=== PATIENT | female | born 1940 | race Caucasian/White ===

== ENCOUNTER 2017-04-02 20:46 | Emergency (ER) | payer OTHER ==
[~2017-04-02] VITALS: Ht 162.6 cm; Wt 52.2 kg
[~2017-04-02 20:46] MED LIST: CATAFLAM50 MG PO; LEVSIN/SL0.125 MG SL; LEXAPRO; TESSALON PERLE100 MG PO
[2017-04-02] MEDS ORDERED: XANAX1 MG (21:19)
== END 2017-04-02 23:58 | disposition home or self-care (01) ==
LOC: ER 20:46
DX: J11.1 Influenza due to unidentified influenza virus with other respiratory manifestations (principal); J06.9 Acute upper respiratory infection, unspecified

== ENCOUNTER 2017-04-25 20:40 | Emergency (ER) | payer OTHER ==
[~2017-04-25] VITALS: Ht 175.3 cm; Wt 47.6 kg
[~2017-04-25 20:40] MED LIST changes: +XANAX1 MG
== END 2017-04-25 23:30 | disposition home or self-care (01) ==
LOC: ER 20:40
DX: S61.421A Laceration with foreign body of right hand, initial encounter (principal); S81.012A Laceration without foreign body, left knee, initial encounter; S81.011A Laceration without foreign body, right knee, initial encounter; W54.0XXA Bitten by dog, initial encounter; Y93.89 Activity, other specified; Y92.018 Other place in single-family (private) house as the place of occurrence of the external cause; Y99.8 Other external cause status

== ENCOUNTER → 2017-04-27 | Emergency (ER) | payer OTHER ==
[~2017-04-27] VITALS: Ht 160 cm; Wt 49.9 kg
== END | disposition home or self-care (01) ==
LOC: ER 09:44
DX: S80.272A Other superficial bite of left knee, initial encounter (principal); S80.271A Other superficial bite of right knee, initial encounter; S50.872A Other superficial bite of left forearm, initial encounter; W54.0XXA Bitten by dog, initial encounter; Y93.89 Activity, other specified; Y92.89 Other specified places as the place of occurrence of the external cause; Y99.8 Other external cause status

== ENCOUNTER 2018-02-18 14:15 | Outpatient (CLI) | payer OTHER | END 2018-02-18 16:25 | disposition home or self-care (01) | LOC: RAD 501 14:15 | DX: R05 Cough (principal) ==

== ENCOUNTER 2018-05-06 09:47 | Emergency (ER) | payer OTHER ==
[~2018-05-06] VITALS: Ht 160 cm; Wt 51.7 kg
== END 2018-05-06 14:33 | disposition home or self-care (01) ==
LOC: ER 09:47
DX: R10.30 Lower abdominal pain, unspecified (principal)

== ENCOUNTER → 2019-10-23 | Emergency (ER) | payer OTHER ==
[~2019-10-23] VITALS: Ht 160 cm; Wt 49.9 kg
== END | disposition home or self-care (01) ==
LOC: ER 02:09
DX: E07.89 Other specified disorders of thyroid (principal); R07.89 Other chest pain; F41.0 Panic disorder [episodic paroxysmal anxiety]

== ENCOUNTER 2020-07-09 12:45 | Outpatient (CLI) | payer OTHER | END 2020-07-09 14:44 | disposition home or self-care (01) | LOC: RAD 12:45 → MRI 14:30 → RAD 14:44 | PROVIDERS: ATTEND Specialist | DX: S06.2X9D Diffuse traumatic brain injury with loss of consciousness of unspecified duration, subsequent encounter (principal); M50.13 Cervical disc disorder with radiculopathy, cervicothoracic region; M62.830 Muscle spasm of back | CPT/HCPCS: 70551 ==

== ENCOUNTER 2020-11-23 11:47 | Emergency (ER) | payer OTHER ==
[~2020-11-23] VITALS: Ht 160 cm; Wt 49.9 kg
== END 2020-11-23 18:51 | disposition home or self-care (01) ==
LOC: ER 11:47 → CPU-OBS 14:57 → ER 14:57
DX: R07.89 Other chest pain (principal); F41.8 Other specified anxiety disorders

== ENCOUNTER 2021-10-28 12:23 | Outpatient (CLI) | payer OTHER | END 2021-10-28 12:28 | disposition home or self-care (01) | LOC: RAD 12:23 | DX: M50.13 Cervical disc disorder with radiculopathy, cervicothoracic region (principal); M62.830 Muscle spasm of back ==

== ENCOUNTER 2022-08-30 13:17 | Emergency (ER) | payer OTHER ==
[~2022-08-30] VITALS: Ht 160 cm; Wt 45.4 kg
== END 2022-08-30 15:30 | disposition home or self-care (01) ==
LOC: ER 13:17
DX: M62.830 Muscle spasm of back (principal); Z88.0 Allergy status to penicillin; Z88.8 Allergy status to other drugs, medicaments and biological substances

== ENCOUNTER 2022-09-05 14:06 | Emergency (ER) | payer OTHER ==
[~2022-09-05] VITALS: Ht 160 cm; Wt 45.4 kg
[2022-09-05] MEDS ORDERED: FOSAMAX PLUS D1 EACH (15:01)
[2022-09-05] MEDS ORDERED: LEVO-T25 MCG (15:01)
== END 2022-09-05 17:04 | disposition home or self-care (01) ==
LOC: ER 14:06
DX: H10.11 Acute atopic conjunctivitis, right eye (principal); Z88.0 Allergy status to penicillin; Z88.8 Allergy status to other drugs, medicaments and biological substances

== ENCOUNTER 2024-07-14 09:40 | Outpatient (CLI) | payer OTHER ==
[~2024-07-14 09:40] MED LIST changes: +FOSAMAX PLUS D1 EACH; +LEVO-T25 MCG; +LEVOTHYROXINE25 MCG PO; +PEPCID AC20 MG PO; +XANAX0.25 MG PO
== END 2024-07-14 09:41 | disposition home or self-care (01) ==
LOC: NUCLEAR 09:40
PROVIDERS: ATTEND Internal Medicine
DX: M81.0 Age-related osteoporosis without current pathological fracture (principal)

== ENCOUNTER 2024-10-05 19:57 | Emergency (ER) | payer OTHER ==
[~2024-10-05] VITALS: Ht 160 cm; Wt 45.4 kg
[2024-10-05] MEDS ORDERED: FAMOTIDINE/PF 20 MG in 0.9 % SODIUM CHLORIDE 8 ML IV PUSH STA (21:12)
[2024-10-05] MEDS ORDERED: KETOROLAC TROMETHAMINE 30 MG VIAL IV ONE (21:15)
[2024-10-05] MEDS ORDERED: ONDANSETRON HCL 2 MG/ML VIAL IV ONE (21:15)
[2024-10-05] MEDS ORDERED: 0.9 % SODIUM CHLORIDE 1,000 ML IV SCH (21:15)
[2024-10-05 22:08] LABS: BASO % 0.3 % (0.1-1.2); EOS # 0.02 (0.04-0.54); EOS % 0.2 % (0.7-7.0); LYMPH # 1.46 (1.18-3.74); LYMPH % 14.4 % (19.3-53.1); MEAN PLATELET VOLUME 9.90 fl (9.4-12.4); MONO # 0.71 (0.24-0.82); MONO % 7.0 % (4.7-12.5); NEUT # 7.90 (1.56-6.13); NEUT % 77.7 % (34.0-71.1); RED CELL DISTRIBUTION WIDTH 13.5 % (11.6-14.4)
[2024-10-05 22:19] LABS: ALT/SGPT 28.0 U/L (12-78); AST/SGOT 24.0 U/L (15-37); BILIRUBIN TOTAL 1.1 mg/dL (0.3-1.2); BUN CREA RATIO 17.0 (7.0-25.0); CREATININE SERUM 0.71 mg/dL (0.55-1.02); GFR 78.05; GLOBULINA 3.6 G/DL (2.4-3.5); GLUCOSE FASTING 103.0 mg/dL (65-100); OSMOLALITY SERUM 278.0 MOSM/KG (275-295)
[2024-10-05] MEDS ORDERED: CIPRO500 MG PO (23:46)
[2024-10-05] MEDS ORDERED: METRONIDAZOLE500 MG PO (23:46)
[2024-10-05] MEDS ORDERED: INTESTINEX680 M1 PO (23:46)
[2024-10-05] MEDS ORDERED: LEVSIN/SL0.125 MG SL (23:46)
[2024-10-05] MEDS ORDERED: PROTONIX40 MG PO (23:46)
[2024-10-05 23:58] VITALS: BP 117/68; O2SAT 99
[2024-10-06 00:27] LABS: URINE APPEARANCE Clear; URINE BILIRRUBIN Negative (NEGATIVE); URINE BLOOD Small; URINE COLOR Yellow; URINE GLUCOSE Negative (NEGATIVE); URINE KETONE Trace (NEGATIVE); URINE LEUKOCYTE Small; URINE NITRATE Negative; URINE PROTEIN Negative (NEGATIVE); URINE UROBILINOGEN 0.2 E.U./dl
[2024-10-06 00:30] LABS: URINE BACTERIA 40.7 uL (0.0-1933); URINE EPITHELIAL CELLS 2.6 uL (0.0-38.8); URINE RBC 27.7 uL (0.0-20.8); URINE WBC 47.3 uL (0.0-23.2)
[2024-10-06 00:36] LABS: URINE CAST 0.00 uL (0.0-1.40)
== END 2024-10-05 23:59 | disposition home or self-care (01) ==
LOC: ER 19:57
PROVIDERS: General Practice
DX: K57.92 Diverticulitis of intestine, part unspecified, without perforation or abscess without bleeding (principal); R10.9 Unspecified abdominal pain; E03.8 Other specified hypothyroidism; Z88.0 Allergy status to penicillin; Z88.8 Allergy status to other drugs, medicaments and biological substances
CPT/HCPCS: 36415; 74176; 96365; 96366; 99284; J1885; J2405; J7030

== ENCOUNTER → 2024-11-13 | Emergency (ER) | payer OTHER ==
[~2024-11-13] VITALS: Ht 152.4 cm; Wt 45.4 kg
[~2024-11-13] MED LIST changes: +CIPRO500 MG PO; +INTESTINEX680 M1 PO; +KETOROLAC TROMETHAMINE 30 MG VIAL IM ONE; +METRONIDAZOLE500 MG PO; +PROTONIX40 MG PO
== END | disposition home or self-care (01) ==
LOC: ER 11:14
DX: M54.50 Low back pain, unspecified (principal); E03.8 Other specified hypothyroidism; Z88.0 Allergy status to penicillin; Z88.8 Allergy status to other drugs, medicaments and biological substances
CPT/HCPCS: 72070; 72100; 96372; 99283; J1885

== ENCOUNTER 2024-11-26 04:31 | Emergency (ER) | payer OTHER ==
[~2024-11-26] VITALS: Ht 160 cm; Wt 45.4 kg
[~2024-11-26 04:31] MED LIST changes: -KETOROLAC TROMETHAMINE 30 MG VIAL IM ONE
[2024-11-26] MEDS ORDERED: HYDROCODONE/CHLORPHEN P-STIREX 5 ML ML PO STA (05:00)
[2024-11-26] MEDS ORDERED: PROMETHAZINE HCL 25 MG/ML AMPUL IM STA (05:00)
[2024-11-26] MEDS ORDERED: PROMETHAZINE HCL 25 MG/ML AMPUL ONE (05:07)
[2024-11-26 05:14] LABS: BASO % 0.9 % (0.1-1.2); EOS # 1.32 (0.04-0.54); EOS % 18.8 % (0.7-7.0); LYMPH # 1.51 (1.18-3.74); LYMPH % 21.4 % (19.3-53.1); MEAN PLATELET VOLUME 9.30 fl (9.4-12.4); MONO # 0.34 (0.24-0.82); MONO % 4.8 % (4.7-12.5); NEUT # 3.80 (1.56-6.13); NEUT % 54.0 % (34.0-71.1); RED CELL DISTRIBUTION WIDTH 13.2 % (11.6-14.4)
[2024-11-26 06:47] LABS: COVID-19 AG NEGATIVE (NEGATIVE)
== END 2024-11-26 07:29 | disposition home or self-care (01) ==
LOC: ER 04:31
DX: J00 Acute nasopharyngitis [common cold] (principal); Z20.822 Contact with and (suspected) exposure to COVID-19; F41.9 Anxiety disorder, unspecified; Z88.0 Allergy status to penicillin; Z88.8 Allergy status to other drugs, medicaments and biological substances
CPT/HCPCS: 36415; 96372; 99283; J2250

== ENCOUNTER → 2024-12-13 | Emergency (ER) | payer OTHER | END | disposition left against medical advice (07) | LOC: ER | DX: Z53.21 Procedure and treatment not carried out due to patient leaving prior to being seen by health care provider (principal) ==

== ENCOUNTER 2024-12-14 07:54 | Emergency (ER) | payer OTHER ==
[~2024-12-14] VITALS: Ht 147.3 cm; Wt 49.9 kg
[2024-12-14 08:08] VITALS: BP 120/60; O2SAT 98
[2024-12-14] MEDS ORDERED: KETOROLAC TROMETHAMINE 30 MG VIAL IM STA (08:44)
[2024-12-14] MEDS ORDERED: KETOROLAC TROMETHAMINE 30 MG VIAL ONE (08:59)
== END 2024-12-14 09:09 | disposition home or self-care (01) ==
LOC: ER 07:54
DX: M54.2 Cervicalgia (principal); Z88.0 Allergy status to penicillin; Z88.8 Allergy status to other drugs, medicaments and biological substances
CPT/HCPCS: 96372; 99282; J1885

== ENCOUNTER 2025-01-11 14:45 | Outpatient (CLI) | payer OTHER | END 2025-01-11 14:47 | disposition home or self-care (01) | LOC: RAD 14:45 | PROVIDERS: ATTEND Internal Medicine | DX: M25.561 Pain in right knee (principal); M54.2 Cervicalgia; M54.6 Pain in thoracic spine; M54.50 Low back pain, unspecified ==

== ENCOUNTER 2025-01-12 08:36 | Outpatient (CLI) | payer OTHER | END 2025-01-12 08:51 | disposition home or self-care (01) | LOC: MAMO-SONO 08:36 | PROVIDERS: ATTEND Internal Medicine | DX: N60.29 Fibroadenosis of unspecified breast (principal) ==

== ENCOUNTER 2025-01-25 14:32 | Outpatient (CLI) | payer OTHER | END 2025-01-25 14:35 | disposition home or self-care (01) | LOC: MRI 14:32 | PROVIDERS: ATTEND Internal Medicine | DX: R41.3 Other amnesia (principal); R51.9 Headache, unspecified | CPT/HCPCS: 70551 ==

== ENCOUNTER 2025-02-22 09:27 | Outpatient (CLI) | payer OTHER | END 2025-02-22 09:28 | disposition home or self-care (01) | LOC: NUCLEAR 09:27 | PROVIDERS: ATTEND Psychiatry & Neurology Clinical Neurophysiology | DX: F03.90 Unspecified dementia, unspecified severity, without behavioral disturbance, psychotic disturbance, mood disturbance, and anxiety (principal) | CPT/HCPCS: 78803; A9557 ==